=== PATIENT | male | born 1965 | race African-American/Black ===

== ENCOUNTER 2017-03-24 17:56 | Emergency (ER) | payer SELFPAY ==
[~2017-03-24] VITALS: Ht 179.1 cm; Wt 86.2 kg
[2017-03-24] MEDS ORDERED: IV NORMAL SALINE 500ML BAG 500 ML IV ONE (18:30)
[2017-03-24] MEDS ORDERED: diphenhydrAMINE 50 MG/ML VIAL IVP ONE (18:30)
[2017-03-24] MEDS ORDERED: methylPREDNISolone SOD SUCC PF 125 MG/2 ML VIAL. IV ONE (18:30)
[2017-03-24 19:13] VITALS: BP 168/103
--- NOTE | 2017-03-24 19:17 | PHYS DOC ---
Past Medical History Past Medical History: Hypertension, Other Additional Past Medical Histor: gout Past Surgical History: No Surgical History Alcohol Use: Heavy Drug Use: None Adult General Chief Complaint Chief Complaint: OTHER COMPLAINTS HPI HPI Patient is a 51 year old male who presents with upper lip swelling and some itching on both feet since about 7:30 this morning after taking lisinopril hydrochlorothiazide for his hypertension is felt a little bit dizzy during the day. Denies any tongue swelling or difficulty swallowing no wheezing or shortness of breath. No skin rash no hives. No prior episodes similar to this. Review of Systems Review of Systems Constitutional: Denies fever or chills [] Eyes: Denies change in visual acuity, redness, or eye pain [] HENT: Denies nasal congestion or sore throat [] Respiratory: Denies cough or shortness of breath [] Cardiovascular: No additional information not addressed in HPI [] GI: Denies abdominal pain, nausea, vomiting, bloody stools or diarrhea [] : Denies dysuria or hematuria [] Musculoskeletal: Denies back pain or joint pain [] Integument: Denies rash or skin lesions [] Neurologic: Denies headache, focal weakness or sensory changes [] Endocrine: Denies polyuria or polydipsia [] All systems negative except as noted in the history of present illness Current Medications Current Medications Current Medications Medications (Trade) Dose Ordered Sig/Roel Start Time Stop Time Status Last Admin Dose Admin Diphenhydramine HCl (Benadryl) 50 mg 1X ONCE 03/24/17 18:30 03/24/17 18:32 DC 03/24/17 18:37 50 MG Methylprednisolone Sodium Succinate (SOLU-Medrol 125MG VIAL) 125 mg 1X ONCE 03/24/17 18:30 03/24/17 18:32 DC 03/24/17 18:37 125 MG Sodium Chloride 500 ml @ 500 mls/hr 1X ONCE 03/24/17 18:30 03/24/17 19:29 DC 03/24/17 18:36 500 MLS/HR Allergies Allergies Allergies Coded Allergies Type Severity Reaction Last Updated Verified lisinopril Allergy Severe angioedema 03/24/17 Yes Physical Exam Physical Exam Constitutional: Well developed, well nourished, no acute distress, non-toxic appearance. [] HENT: Normocephalic, atraumatic, bilateral external ears normal, oropharynx moist, no oral exudates, nose normal. No tongue swelling the upper lip is mild to moderately swollen no lower lip swelling. Able to handle oral secretions; normally normal voice [] Eyes: PERRLA, EOMI, conjunctiva normal, no discharge. [] Neck: Normal range of motion, no tenderness, supple, no stridor. [] Cardiovascular:Heart rate regular rhythm, no murmur [] Lungs & Thorax: Bilateral breath sounds clear to auscultation [] no wheezing Abdomen: Bowel sounds normal, soft, no tenderness, no masses, no pulsatile masses. [] Skin: Warm, dry, no erythema, no rash. [] Back: No tenderness, no CVA tenderness. [] Extremities: No tenderness, no cyanosis, no clubbing, ROM intact, no edema. [] Neurologic: Alert and oriented X 3, normal motor function, normal sensory function, no focal deficits noted. [] Psychologic: Affect normal, judgement normal, mood normal. [] Current Patient Data Vital Signs Vital Signs Date Time Temp Pulse Resp B/P (MAP) Pulse Ox O2 Delivery O2 Flow Rate FiO2 03/24/17 19:13 100 16 168/103 (124) 98 Room Air 03/24/17 18:18 98.4 98.4 EKG EKG [] Radiology/Procedures Radiology/Procedures [] Course & Med Decision Making Course & Med Decision Making Pertinent Labs and Imaging studies reviewed. (See chart for details) Based on history or physical exam findings most consistent with angioedema secondary to UNRULY inhibitor-induced cause. Patient has no airway compromise. Observation. Demonstrated a stable slightly swollen upper lip with no lower lip or tongue swelling or throat swelling. No wheezing or difficulty breathing. He did have some slight itching with his feet and this was addressed with IV Benadryl and some steroids. And IV fluids. Patient feels improved. I have given him the option for observation admission to the hospital and he and his are declining this at this time. We've given him precautions regarding tongue and throat swelling and to immediately return if this occurs. [] Dragon Disclaimer Dragon Disclaimer This electronic medical record was generated, in whole or in part, using a voice recognition dictation system. Departure Departure Impression: Primary Impression: UNRULY inhibitor-aggravated angioedema Disposition: 01 HOME, SELF-CARE Condition: IMPROVED Referrals: NO PCP (PCP) MARTHA MONROE MD March 24, 2017 19:17
--- NOTE | 2017-03-25 07:25 | EKG ---
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
== END 2017-03-24 19:25 | disposition home or self-care (01) ==
LOC: ER 17:56
DX: T78.3XXA Angioneurotic edema, initial encounter (principal); I10 Essential (primary) hypertension; M10.9 Gout, unspecified; Z88.8 Allergy status to other drugs, medicaments and biological substances
CPT/HCPCS: 93005; 96361; 96374; 96375; 99284; J1200; J2930; J7040

== ENCOUNTER 2017-04-22 15:56 | Inpatient (IN) | payer SELFPAY ==
[~2017-04-22] VITALS: Ht 179.1 cm; Wt 89.9 kg
[2017-04-22] MEDS ORDERED: ACETAMINOPHEN 500 MG TABLET PO ONE (16:30)
[2017-04-22 17:05] LABS: BASO % 1 % (0-3); EOS % 2 % (0-3); HEMATOCRIT 43.8 % (39.0-53.0); LYMPH # 0.8 x10^3/uL (1.0-4.8); LYMPH % 24 % (24-48); MEAN CORPUSCULAR HEMOGLOBIN 32 pg (25-35); MEAN CORPUSCULAR HGB CONC 34 g/dL (31-37); MEAN CORPUSCULAR VOLUME 94 fL (79-100); MONO % 12 % (0-9); NEUT % 61 % (31-73); PLATELET COUNT 125 x10^3/uL (140-400); RED BLOOD COUNT 4.65 x10^6/uL (4.30-5.70); RED CELL DISTRIBUTION WIDTH 13.6 % (11.5-14.5); WHITE BLOOD COUNT 3.2 x10^3/uL (4.0-11.0)
[2017-04-22 17:07] LABS: BILIRUBIN,URINE NEGATIVE (NEG); GLUCOSE,URINE NEGATIVE (NEG); NITRITE,URINE NEGATIVE (NEG); PH,URINE 7.5; PROTEIN,URINE 30 mg/dL (NEG-TRACE)
[2017-04-22 17:14] LABS: BACTERIA,URINE FEW /HPF (0-FEW)
[2017-04-22 17:15] LABS: SQUAMOUS EPITHELIAL CELL,UR OCC /LPF
[2017-04-22 17:16] LABS: CALCIUM 9.7 mg/dL (8.5-10.1); GFR 94.9
[2017-04-22 17:22] LABS: ALBUMIN 4.3 g/dL (3.4-5.0); DIRECT BILIRUBIN 0.2 mg/dL (0.0-0.2); MAGNESIUM 2.1 mg/dL (1.8-2.4); TOTAL BILIRUBIN 0.6 mg/dL (0.2-1.0)
[2017-04-22 17:28] LABS: BARBITURATES NEG (NEG); BENZODIAZEPINES NEG (NEG); CANNABINOIDS NEG (NEG); COCAINE NEG (NEG); METHADONE NEG (NEG); OPIATES NEG (NEG); PHENCYCLIDINE NEG (NEG)
--- NOTE | 2017-04-22 17:31 | RAD ---
Indication chest pain. Frontal and lateral views of the chest were obtained. Comparison is made to an examination November 28, 2005. The heart and pulmonary vessels appear normal. The mediastinum has a normal appearance. The lungs are clear of acute infiltrates. There is no pleural fluid or pneumothorax. Scoliosis is noted. IMPRESSION: No acute or focal process is seen in the chest
[2017-04-22] MEDS ORDERED: LABETALOL 20 MG/4 ML DISP.SYRIN. IVP ONE ×2 (17:45→19:15)
--- NOTE | 2017-04-22 17:48 | RAD ---
EXAM: Head CT without contrast. HISTORY: Hypertension and headache. TECHNIQUE: Computed tomographic images of the head were obtained without contrast. *One or more of the following individualized dose reduction techniques were utilized for this examination: 1. Automated exposure control. 2. Adjustment of the mA and/or kV according to patient size. 3. Use of iterative reconstruction technique. COMPARISON: None. FINDINGS: There is no acute or subacute extra-axial or intraparenchymal hemorrhage. There is no mass effect or midline shift. There is no hydrocephalus. There are foci of fat along the falx and along the atrium of the left lateral ventricle, the latter which measures 7 mm in maximum dimension. The jaeger-white matter differentiation pattern is intact. There is mild left maxillary and left greater than right ethmoid sinus because of thickening. The mastoid air cells are clear. No calvarial lesion is seen. IMPRESSION: 1. No acute intracranial finding. Note is made that MRI is more sensitive for acute infarction. 2. Small focal areas of fat density along the falx and atrium of the left lateral ventricle. The differential includes small lipomas as well as dermoid or ruptured dermoid. Electronically signed by: Patricia Oneil MD (04/22/2017 5:45 PM)
[2017-04-22] MEDS ORDERED: amLODIPine BESYLATE 5 MG TABLET PO ONE (18:00)
[2017-04-22] MEDS ORDERED: NICOTINE 21MG PATCH. TD PRN (21:00)
--- NOTE | 2017-04-22 21:07 | PDOC1 ---
History and Physical Date of Admission Date of Admission DATE: 04/22/17 TIME: 20:52 Identification/Chief Complaint Chief Complaint shakes, headache Problems: Source Source: Caregiver, Chart review, Patient History of Present Illness History of Present Illness 51 y.o AA male, heavy alcoholic, many beers a day, pint of gin everyday, ETOH levels 75, high BP on admit, no resolved with hydralazine pushes and PO anti hypertensives, admitted for high BP on cardene gtt and etoh withdrawal. Smokes too, tested positive for etoh, labs WBC 3,.2, platelets ok, no mag, K is ok, Pt starting to shake, CXR normal, CT head I have personally reviewed: IMPRESSION: 1. No acute intracranial finding. Note is made that MRI is more sensitive for acute infarction. 2. Small focal areas of fat density along the falx and atrium of the left lateral ventricle. The differential includes small lipomas as well as dermoid or ruptured dermoid. 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 Tells us was on lisinopril before but had angioedema hence stopped, And was not replaced on anything (pt might not be that reliable) Past Medical History Cardiovascular: HTN Past Surgical History Past Surgical History: No pertinent history Family History Family History: Hypertension Social History Smoke: <1 pack per day ALCOHOL: heavy Drugs: None Current Medications Current Medications Current Medications Acetaminophen (Tylenol) 1,000 mg 1X ONCE PO Last administered on 04/22/17 17: 04; Start 04/22/17 at 16:30; Stop 04/22/17 at 16:33; Status DC Labetalol HCl (Normodyne) 20 mg 1X ONCE IVP Last administered on 04/22/17 18: 12; Start 04/22/17 at 17:45; Stop 04/22/17 at 17:46; Status DC Amlodipine Besylate (Norvasc) 10 mg 1X ONCE PO Last administered on 04/22/17 18:13; Start 04/22/17 at 18:00; Stop 04/22/17 at 18:01; Status DC Labetalol HCl (Normodyne) 40 mg 1X ONCE IVP Last administered on 04/22/17 19: 26; Start 04/22/17 at 19:15; Stop 04/22/17 at 19:16; Status DC Nicardipine HCl 50 mg/Sodium Chloride 270 ml @ 0 mls/hr CONT PRN IV SEE I/O RECORD Last administered on 04/22/17t 20:15; Start 04/22/17 at 20:00 Multivitamins 10 ml/Thiamine HCl 100 mg/Folic Acid 1 mg/Sodium Chloride 1,011.2 ml @ 100 mls/ hr DAILY IV ; Start 04/23/17 at 09:00; Stop 04/28/17 at 08:59; Status UNV Chlordiazepoxide (Librium) 50 mg PRN Q1HR PRN PO For CIWA 8-14; Start 04/22/17 at 20:45; Status UNV Diazepam (Valium) 5 mg PRN Q5MIN PRN IV COMM; Start 04/22/17 at 20:45; Status UNV Allergies Allergies: Coded Allergies: lisinopril (Verified Allergy, Severe, angioedema, 03/24/17) ROS General: No: Chills, Night Sweats, Fatigue, Malaise, Appetite, Other PSYCHOLOGICAL ROS: No: Anxiety, Behavioral Disorder, Concentration difficultie , Decreased libido, Depression, Disorientation, Hallucinations, Hostility, Irritablity, Memory difficulties, Mood Swings, Obsessive thoughts, Physical abuse, Sexual abuse, Sleep disturbances, Suicidal ideation, Other Eyes: No Blurry vision, No Decreased vision, No Double vision, No Dry eyes, No Excessive tearing, No Eye Pain, No Itchy Eyes, No Loss of vision, No Photophobia , No Scotomata, No Uses contacts, No Uses glasses, No Other HEENT: No: Heacaches, Visual Changes, Hearing change, Nasal congestion, Nasal discharge, Oral lesions, Sinus pain, Sore Throat, Epistaxis, Sneezing, Snoring, Tinnitus, Vertigo, Vocal changes, Other ALLERGY AND IMMUNOLOGY: No: Hives, Insect Bite Sensitivity, Itchy/Watery Eyes, Nasal Congestion, Post Nasal Drip, Seasonal Allergies, Other Hematological and Lymphatic: No: Bleeding Problems, Blood Clots, Blood Transfusions, Brusing, Night Sweats, Pallor, Swollen Lymph Nodes, Other ENDOCRINE: No: Breast Changes, Galactorrhea, Hair Pattern Changes, Hot Flashes , Malaise/lethargy, Mood Swings, Palpitations, Polydipsia/polyuria, Skin Changes , Temperature Intolerance, Unexpected Weight Changes, Other Breast: No New/Changing Breast Lumps, No Nipple changes, No Nipple discharge, No Other Respiratory: No: Cough, Hemoptysis, Orthopnea, Pleuritic Pain, Shortness of breath, SOB with excertion, Sputum Changes, Stridor, Tachypnea, Wheezing, Other Cardiovascular: No Chest Pain, No Palpitations, No Orthopnea, No Paroxysmal Noc. Dyspnea, No Edema, No Lt Headedness, No Other Gastrointestinal: No Nausea, No Vomiting, No Abdominal Pain, No Diarrhea, No Constipation, No Melena, No Hematochezia, No Other Genitourinary: No Dysuria, No Frequency, No Incontinence, No Hematuria, No Retention, No Discharge, No Urgency, No Pain, No Flank Pain, No Other, No , No , No , No , No , No , No Neurological: Yes Headaches Skin: No Dry Skin, No Eczema, No Hair Changes, No Lumps, No Mole Changes, No Mottling, No Nail Changes, No Pruritus, No Rash, No Skin Lesion Changes, No Other, No Acne Physical Exam General: Alert, Oriented X3, Cooperative, No acute distress, Other (starting to have shakes/tremors) HEENT: Atraumatic Lungs: Clear to auscultation Heart: S1S2, RRR, no thrills, no rubs, other (tachy) Cardiovascular: S1, S2 Breasts: Normal Abdomen: Normal bowel sounds, Soft, No tenderness, No hepatosplenomegaly, No masses Male Genitals Exam: normal genitalia, normal prostate Rectal Exam: not examined, mass Extremities: No clubbing, No cyanosis, No edema, Normal pulses, No tenderness/ swelling Skin: No rashes, No breakdown, No significant lesion Neuro: Normal gait, Normal speech, Strength at 5/5 X4 ext, Normal tone, Sensation intact, Cranial nerves 3-12 NL, Reflexes 2+ Psych/Mental Status: Mental status NL, Mood NL Vitals Vitals Vital Signs Date Time Temp Pulse Resp B/P (MAP) Pulse Ox O2 Delivery O2 Flow Rate FiO2 04/22/17 20:00 78 26 183/110 (134) 95 Room Air 04/22/17 16:05 98.3 98.3 Labs Labs Laboratory Tests Test 04/22/17 16:56 04/22/17 17:22 White Blood Count 3.2 x10^3/uL (4.0-11.0) Red Blood Count 4.65 x10^6/uL (4.30-5.70) Hemoglobin 15.0 g/dL (13.0-17.5) Hematocrit 43.8 % (39.0-53.0) Mean Corpuscular Volume 94 fL (79-100) Mean Corpuscular Hemoglobin 32 pg (25-35) Mean Corpuscular Hemoglobin Concent 34 g/dL (31-37) Red Cell Distribution Width 13.6 % (11.5-14.5) Platelet Count 125 x10^3/uL (140-400) Neutrophils (%) (Auto) 61 % (31-73) Lymphocytes (%) (Auto) 24 % (24-48) Monocytes (%) (Auto) 12 % (0-9) Eosinophils (%) (Auto) 2 % (0-3) Basophils (%) (Auto) 1 % (0-3) Neutrophils # (Auto) 2.0 x10^3uL (1.8-7.7) Lymphocytes # (Auto) 0.8 x10^3/uL (1.0-4.8) Monocytes # (Auto) 0.4 x10^3/uL (0.0-1.1) Eosinophils # (Auto) 0.1 x10^3/uL (0.0-0.7) Basophils # (Auto) 0.0 x10^3/uL (0.0-0.2) Urine Collection Type Void Urine Color Yellow Urine Clarity Clear Urine pH 7.5 Urine Specific [place] 1.020 Urine Protein 30 mg/dL (NEG-TRACE) Urine Glucose (UA) Negative mg/dL (NEG) Urine Ketones (Stick) Trace mg/dL (NEG) Urine Blood Negative (NEG) Urine Nitrite Negative (NEG) Urine Bilirubin Negative (NEG) Urine Urobilinogen Dipstick 1.0 mg/dL (0.2 mg/dL) Urine Leukocyte Esterase Trace (NEG) Urine RBC 1-2 /HPF (0-2) Urine WBC 5-10 /HPF (0-4) Urine Squamous Epithelial Cells Occ /LPF Urine Bacteria Few /HPF (0-FEW) Urine Mucus Mod /LPF Sodium Level 138 mmol/L (136-145) Potassium Level 4.0 mmol/L (3.5-5.1) Chloride Level 98 mmol/L (98-107) Carbon Dioxide Level 27 mmol/L (21-32) Anion Gap 13 (6-14) Blood Urea Nitrogen 9 mg/dL (8-26) Creatinine 1.0 mg/dL (0.7-1.3) Estimated GFR (Cockcroft-Gault) 94.9 Glucose Level 98 mg/dL (70-99) Calcium Level 9.7 mg/dL (8.5-10.1) Magnesium Level 2.1 mg/dL (1.8-2.4) Total Bilirubin 0.6 mg/dL (0.2-1.0) Direct Bilirubin 0.2 mg/dL (0.0-0.2) Aspartate Amino Transf (AST/SGOT) 484 U/L (15-37) Alanine Aminotransferase (ALT/SGPT) 425 U/L (16-63) Alkaline Phosphatase 62 U/L (46-116) Troponin I Quantitative 0.017 ng/mL (0.000-0.055) ZL-Nwu-M-Type Natriuretic Peptide 22 pg/mL (0-124) Total Protein 8.0 g/dL (6.4-8.2) Albumin 4.3 g/dL (3.4-5.0) Lipase 232 U/L (73-393) Urine Opiates Screen Neg (NEG) Urine Methadone Screen Neg (NEG) Urine Barbiturates Neg (NEG) Urine Phencyclidine Screen Neg (NEG) Urine Amphetamine/Methamphetamine Neg (NEG) Urine Benzodiazepines Screen Neg (NEG) Urine Cocaine Screen Neg (NEG) Urine Cannabinoids Screen Neg (NEG) Urine Ethyl Alcohol Pos (NEG) Ethyl Alcohol Level 75 mg/dL (0-10) Laboratory Tests Test 04/22/17 16:56 04/22/17 17:22 White Blood Count 3.2 x10^3/uL (4.0-11.0) Red Blood Count 4.65 x10^6/uL (4.30-5.70) Hemoglobin 15.0 g/dL (13.0-17.5) Hematocrit 43.8 % (39.0-53.0) Mean Corpuscular Volume 94 fL (79-100) Mean Corpuscular Hemoglobin 32 pg (25-35) Mean Corpuscular Hemoglobin Concent 34 g/dL (31-37) Red Cell Distribution Width 13.6 % (11.5-14.5) Platelet Count 125 x10^3/uL (140-400) Neutrophils (%) (Auto) 61 % (31-73) Lymphocytes (%) (Auto) 24 % (24-48) Monocytes (%) (Auto) 12 % (0-9) Eosinophils (%) (Auto) 2 % (0-3) Basophils (%) (Auto) 1 % (0-3) Neutrophils # (Auto) 2.0 x10^3uL (1.8-7.7) Lymphocytes # (Auto) 0.8 x10^3/uL (1.0-4.8) Monocytes # (Auto) 0.4 x10^3/uL (0.0-1.1) Eosinophils # (Auto) 0.1 x10^3/uL (0.0-0.7) Basophils # (Auto) 0.0 x10^3/uL (0.0-0.2) Urine Collection Type Void Urine Color Yellow Urine Clarity Clear Urine pH 7.5 Urine Specific [place] 1.020 Urine Protein 30 mg/dL (NEG-TRACE) Urine Glucose (UA) Negative mg/dL (NEG) Urine Ketones (Stick) Trace mg/dL (NEG) Urine Blood Negative (NEG) Urine Nitrite Negative (NEG) Urine Bilirubin Negative (NEG) Urine Urobilinogen Dipstick 1.0 mg/dL (0.2 mg/dL) Urine Leukocyte Esterase Trace (NEG) Urine RBC 1-2 /HPF (0-2) Urine WBC 5-10 /HPF (0-4) Urine Squamous Epithelial Cells Occ /LPF Urine Bacteria Few /HPF (0-FEW) Urine Mucus Mod /LPF Sodium Level 138 mmol/L (136-145) Potassium Level 4.0 mmol/L (3.5-5.1) Chloride Level 98 mmol/L (98-107) Carbon Dioxide Level 27 mmol/L (21-32) Anion Gap 13 (6-14) Blood Urea Nitrogen 9 mg/dL (8-26) Creatinine 1.0 mg/dL (0.7-1.3) Estimated GFR (Cockcroft-Gault) 94.9 Glucose Level 98 mg/dL (70-99) Calcium Level 9.7 mg/dL (8.5-10.1) Magnesium Level 2.1 mg/dL (1.8-2.4) Total Bilirubin 0.6 mg/dL (0.2-1.0) Direct Bilirubin 0.2 mg/dL (0.0-0.2) Aspartate Amino Transf (AST/SGOT) 484 U/L (15-37) Alanine Aminotransferase (ALT/SGPT) 425 U/L (16-63) Alkaline Phosphatase 62 U/L (46-116) Troponin I Quantitative 0.017 ng/mL (0.000-0.055) IH-Yuj-V-Type Natriuretic Peptide 22 pg/mL (0-124) Total Protein 8.0 g/dL (6.4-8.2) Albumin 4.3 g/dL (3.4-5.0) Lipase 232 U/L (73-393) Urine Opiates Screen Neg (NEG) Urine Methadone Screen Neg (NEG) Urine Barbiturates Neg (NEG) Urine Phencyclidine Screen Neg (NEG) Urine Amphetamine/Methamphetamine Neg (NEG) Urine Benzodiazepines Screen Neg (NEG) Urine Cocaine Screen Neg (NEG) Urine Cannabinoids Screen Neg (NEG) Urine Ethyl Alcohol Pos (NEG) Ethyl Alcohol Level 75 mg/dL (0-10) VTE Prophylaxis Ordered VTE Prophylaxis Devices: Yes VTE Pharmacological Prophylaxi: Yes Assessment/Plan Assessment/Plan 1. Accelerated hTN POA 2. Alcohol heavy consumption now with etoh withdrawal sxs 3. Ruptured lipoma vs small dermoid, incidental on head CT 4. NEutropenia in an alcoholic 5. Smoker 6. elevated LFTs in an alcoholic 7. Thrombocytopenia in an alcoholic PLAN: Admit CArdene gtt to control BP as no resolved with pushes CIWA PT.OT SW for AAA referral Monitor low platelets and low white ct NIcotine patch Seen at ER [facility] ER LESIA SOOD MD Apr 22, 2017 21:07
[2017-04-22] MEDS ORDERED: ONDANSETRON PF 4 MG/2 ML VIAL. IV PRN (21:15)
[2017-04-22] MEDS: MULTIVIT INFUSN,ADULT 4,VIT K 10 ML, THIAMINE 100 MG, FOLIC ACID 1 MG in IV NORMAL SALI... IV SCH (21:40)
[2017-04-22] MEDS: chlordiazePOXIDE HCL 25 MG CAPSULE PO PRN (21:41)
--- NOTE | 2017-04-22 22:19 | ED.ADGEN ---
Past Medical History Past Medical History: Hypertension, Other Additional Past Medical Histor: gout Past Surgical History: No Surgical History Alcohol Use: Heavy Drug Use: None Social History Narrative: ETOH use daily, pt stated has tremors if does not drink Adult General Chief Complaint Chief Complaint: Palpitations HPI HPI Patient is a 51 year old man with a history of hypertension, alcohol abuse, who presents to the emergency department with a complaint of head and chest pressure and a "feeling like my blood pressure is up". Patient states symptoms began last night, has also been experiencing intermittent fluttering sensation in his chest, is not a tearing currently, patient is in sinus rhythm on the monitor. No history of arrhythmia. Patient's initial blood pressure is 190s over 1 teens, heart rate is in the 70s. Patient states that he drinks about a sixpack of beer and a half pint of gin daily. He did drink before he came to the ED, but has not had anything since this morning. He denies any drugs, denies any injuries, denies any shortness of breath, any nausea or vomiting, any vision changes, any focal weakness, numbness or tingling. He states that he is experiencing pressure behind his eyes, in his head extending down into his neck and the anterior portion of his chest, no radiation into his arms. He states he is having a headache as well, located in the front of his head. He states that he had similar symptoms previously, and was told this was due to his high blood pressure. He states that one month ago he had an allergic reaction to lisinopril, the medication was discontinued, and he did not follow- up with another provider in order placed on another medication and therefore has not taken any antihypertensive medication since that time. No swelling extremities, no history of DVT or PE, no recent travel or surgery. Patient states that he does get shaky when he doesn't drink, but denies any history of seizure activity or other withdrawal problems. Review of Systems Review of Systems Constitutional: Denies fever or chills. [] Eyes: Denies change in visual acuity. [] HENT: Denies nasal congestion or sore throat. [] Respiratory: Denies cough or shortness of breath. [] Cardiovascular: Chest pressure, no edema. GI: Denies abdominal pain, nausea, vomiting, bloody stools or diarrhea. [] : Denies dysuria. [] Musculoskeletal: Denies back pain or joint pain. [] Integument: Denies rash. [] Neurologic: Headache and head pressure. No Focal weakness or sensory changes. [ ] Endocrine: Denies polyuria or polydipsia. [] Lymphatic: Denies swollen glands. [] Psychiatric: Denies depression or anxiety. [] Current Medications Current Medications Current Medications Medications (Trade) Dose Ordered Sig/Roel Start Time Stop Time Status Last Admin Dose Admin Acetaminophen (Tylenol) 1,000 mg 1X ONCE 04/22/17 16:30 04/22/17 16:33 DC 04/22/17 17:04 1,000 MG Amlodipine Besylate (Norvasc) 10 mg 1X ONCE 04/22/17 18:00 04/22/17 18:01 DC 04/22/17 18:13 10 MG Labetalol HCl (Normodyne) 40 mg 1X ONCE 04/22/17 19:15 04/22/17 19:16 DC 04/22/17 19:26 40 MG Allergies Allergies Allergies Coded Allergies Type Severity Reaction Last Updated Verified lisinopril Allergy Severe angioedema 03/24/17 Yes Physical Exam Physical Exam Constitutional: Well developed, well nourished, no acute distress, non-toxic appearance. Patient is slightly tremulous. HENT: Normocephalic, atraumatic, bilateral external ears normal, oropharynx moist, no oral exudates, nose normal. [] Eyes: PERRLA, EOMI, conjunctiva normal, no discharge. [] Neck: Normal range of motion, no tenderness, supple, no stridor. [] Cardiovascular:Heart rate regular rhythm, no murmur , S1, S2, no rubs or gallops. [] Lungs & Thorax: Bilateral breath sounds clear to auscultation, no wheezing, rhonchi, rales. No chest wall crepitus or tenderness. [] Abdomen: Bowel sounds normal, soft, no tenderness, no masses, no pulsatile masses. [] Skin: Warm, dry, no erythema, no rash. [] Back: No tenderness, no CVA tenderness. [] Extremities: No tenderness, no cyanosis, no clubbing, ROM intact, no edema. [] Neurologic: Alert and oriented X 3, normal motor function, normal sensory function, no focal deficits noted. [] Patient noted to have tremor with movement. Psychologic: Affect normal, judgement normal, mood normal. [] Current Patient Data Vital Signs Vital Signs Date Time Temp Pulse Resp B/P (MAP) Pulse Ox O2 Delivery O2 Flow Rate FiO2 04/22/17 19:30 76 20 191/113 (139) 97 Room Air 04/22/17 16:05 98.3 98.3 Lab Values Laboratory Tests Test 04/22/17 16:56 04/22/17 17:22 White Blood Count 3.2 x10^3/uL (4.0-11.0) L Red Blood Count 4.65 x10^6/uL (4.30-5.70) Hemoglobin 15.0 g/dL (13.0-17.5) Hematocrit 43.8 % (39.0-53.0) Mean Corpuscular Volume 94 fL (79-100) Mean Corpuscular Hemoglobin 32 pg (25-35) Mean Corpuscular Hemoglobin Concent 34 g/dL (31-37) Red Cell Distribution Width 13.6 % (11.5-14.5) Platelet Count 125 x10^3/uL (140-400) L Neutrophils (%) (Auto) 61 % (31-73) Lymphocytes (%) (Auto) 24 % (24-48) Monocytes (%) (Auto) 12 % (0-9) H Eosinophils (%) (Auto) 2 % (0-3) Basophils (%) (Auto) 1 % (0-3) Neutrophils # (Auto) 2.0 x10^3uL (1.8-7.7) Lymphocytes # (Auto) 0.8 x10^3/uL (1.0-4.8) L Monocytes # (Auto) 0.4 x10^3/uL (0.0-1.1) Eosinophils # (Auto) 0.1 x10^3/uL (0.0-0.7) Basophils # (Auto) 0.0 x10^3/uL (0.0-0.2) Urine Collection Type Void Urine Color Yellow Urine Clarity Clear Urine pH 7.5 Urine Specific [place] 1.020 Urine Protein 30 mg/dL (NEG-TRACE) Urine Glucose (UA) Negative mg/dL (NEG) Urine Ketones (Stick) Trace mg/dL (NEG) Urine Blood Negative (NEG) Urine Nitrite Negative (NEG) Urine Bilirubin Negative (NEG) Urine Urobilinogen Dipstick 1.0 mg/dL (0.2 mg/dL) Urine Leukocyte Esterase Trace (NEG) Urine RBC 1-2 /HPF (0-2) Urine WBC 5-10 /HPF (0-4) Urine Squamous Epithelial Cells Occ /LPF Urine Bacteria Few /HPF (0-FEW) Urine Mucus Mod /LPF Sodium Level 138 mmol/L (136-145) Potassium Level 4.0 mmol/L (3.5-5.1) Chloride Level 98 mmol/L (98-107) Carbon Dioxide Level 27 mmol/L (21-32) Anion Gap 13 (6-14) Blood Urea Nitrogen 9 mg/dL (8-26) Creatinine 1.0 mg/dL (0.7-1.3) Estimated GFR (Cockcroft-Gault) 94.9 Glucose Level 98 mg/dL (70-99) Calcium Level 9.7 mg/dL (8.5-10.1) Magnesium Level 2.1 mg/dL (1.8-2.4) Total Bilirubin 0.6 mg/dL (0.2-1.0) Direct Bilirubin 0.2 mg/dL (0.0-0.2) Aspartate Amino Transferase (AST) 484 U/L (15-37) H Alanine Aminotransferase (ALT) 425 U/L (16-63) H Alkaline Phosphatase 62 U/L (46-116) Troponin I Quantitative 0.017 ng/mL (0.000-0.055) EY-Yho-O-Type Natriuretic Peptide 22 pg/mL (0-124) Total Protein 8.0 g/dL (6.4-8.2) Albumin 4.3 g/dL (3.4-5.0) Lipase 232 U/L (73-393) Urine Opiates Screen Neg (NEG) Urine Methadone Screen Neg (NEG) Urine Barbiturates Neg (NEG) Urine Phencyclidine Screen Neg (NEG) Urine Amphetamine/Methamphetamine Neg (NEG) Urine Benzodiazepines Screen Neg (NEG) Urine Cocaine Screen Neg (NEG) Urine Cannabinoids Screen Neg (NEG) Urine Ethyl Alcohol Pos (NEG) Ethyl Alcohol Level 75 mg/dL (0-10) H Laboratory Tests 04/22/17 16:56 Laboratory Tests 04/22/17 16:56 EKG EKG EC: Sinus rhythm, heart rate 70 beats minute, left axis deviation with contour normality is noted in the anterior leads, and septal leads, with T-wave inversions noted in lead 3 as well, no ST elevations or depressions, QTC of 407 , HI of 106, QRS of 90, abnormal ECG, does not meet STEMI criteria. As interpreted by me. Radiology/Procedures Radiology/Procedures [][id number] [place], [place] [id number] IMAGING REPORT Signed PATIENT: MARTHA GUZMÁN ACCOUNT: [id number] : 1965 LOCATION: ER AGE: 51 SEX: M EXAM STATUS: REG ER ORD. PHYSICIAN: MICHEL FONSECA DO REASON: HTN/RIDDLE PROCEDURE: CT HEAD WO CONTRAST EXAM: Head CT without contrast. HISTORY: Hypertension and headache. TECHNIQUE: Computed tomographic images of the head were obtained without contrast. *One or more of the following individualized dose reduction techniques were utilized for this examination: 1. Automated exposure control. 2. Adjustment of the mA and/or kV according to patient size. 3. Use of iterative reconstruction technique. COMPARISON: None. FINDINGS: There is no acute or subacute extra-axial or intraparenchymal hemorrhage. There is no mass effect or midline shift. There is no hydrocephalus. There are foci of fat along the falx and along the atrium of the left lateral ventricle, the latter which measures 7 mm in maximum dimension. The jaeger-white matter differentiation pattern is intact. There is mild left maxillary and left greater than right ethmoid sinus because of thickening. The mastoid air cells are clear. No calvarial lesion is seen. IMPRESSION: 1. No acute intracranial finding. Note is made that MRI is more sensitive for acute infarction. 2. Small focal areas of fat density along the falx and atrium of the left lateral ventricle. The differential includes small lipomas as well as dermoid or ruptured dermoid. Electronically signed by: Patricia Hirsch MD (04/22/2017 5:45 PM) DICTATED and SIGNED BY: PATRICIA HIRSCH MD DATE: 04/22/17 1739 CC: MICHEL FONSECA DO; NO PCP ~ Impressions: [id number] [place] [id number] IMAGING REPORT Signed PATIENT: MARTHA GUZMÁN ACCOUNT: [id number] : 1965 LOCATION: ER AGE: 51 SEX: M EXAM STATUS: REG ER ORD. PHYSICIAN: MICHEL FONSECA DO REASON: Palpitations PROCEDURE: CHEST PA & LATERAL Indication chest pain. Frontal and lateral views of the chest were obtained. Comparison is made to an examination November 28, 2005. The heart and pulmonary vessels appear normal. The mediastinum has a normal appearance. The lungs are clear of acute infiltrates. There is no pleural fluid or pneumothorax. Scoliosis is noted. IMPRESSION: No acute or focal process is seen in the chest DICTATED and SIGNED BY: CHAU FOSTER MD DATE: 04/22/171726 CC: MICHEL FONSECA DO; NO PCP ~ Course & Med Decision Making Course & Med Decision Making Pertinent Labs and Imaging studies reviewed. (See chart for details) Patient received CT imaging of the head, x-ray of the chest, laboratory studies which were unremarkable. ECG reveals left axis deviation, no ST elevation or depression, troponin is negative. Patient received labetalol initially 20 mg IV in the ED, and then additional 40, and 10 mg of Norvasc. His blood pressure improved slightly, to 180s over 100s, patient states he was feeling better, but then blood pressure did increase, 199/114. Patient is also becoming increasingly tremulous, with evidence of withdrawal. I did discuss these findings with patient, as he is not responding to oral medications at this time an effective manner, and he has been almost 90 minutes since administration of these multiple medications, he is agreeable for admission to the hospital with initiation of IV infusion of medication to control his blood pressure, and also initiation of alcohol withdrawal protocol. Patient agreeable, was initiated on a nicardipine infusion, at 12.5 mg, heart rate remains in the 80s, blood pressure is 160s/90s, patient has been administered Librium, and a dose of Valium, and states he is feeling better at this time, although his heart rate is fluctuating between 80s to low 100s. Will continue to monitor and used C1 score for adjustment, instructed to keep his blood pressure between 140s to 160s , over 80s to 90s. Findings as above discussed with Dr. Neal internal medicine, patient accepted to her service as a full admission to the cardiac telemetry floor, with consultation for cardiology placed bridge orders entered per discussion. Dragon Disclaimer Dragon Disclaimer This electronic medical record was generated, in whole or in part, using a voice recognition dictation system. Departure Impression: Primary Impression: HTN (hypertension) Additional Impressions: Noncompliance with medication regimen Palpitations Alcohol addiction Disposition: ADMITTED INPATIENT Admitting Physician: Beata Neal Condition: IMPROVED Problem Qualifiers MICHEL FONSECA DO Apr 22, 2017 22:19
[2017-04-22 22:30] VITALS: BP 130/73
[2017-04-22 22:56] VITALS: BP 134/73
[2017-04-23] VITALS (9 sets, daily range): BP systolic 126–136; BP diastolic 69–87
--- NOTE | 2017-04-23 02:05 | ACF ---
Admission Forms Criteria HYPERTENSION Clinical Indications for Admission to Inpatient Care ( Place "X" for any and all applicable criteria): Admission is indicated for 1 or more of the following(1)(2)(3)(4)(5)(6)(7)(8)(9) (10): [ ]I. Hypertensive emergency, with evidence of acute and progressing target organ disease as indicated by 1 or more of the following: [ ]a) Hypertensive encephalopathy (eg, confusion, altered mental status) [ ]b) Cerebral infarction [ ]c) Intracranial hemorrhage [ ]d) Myocardial ischemia or infarction [ ]e) Heart failure (eg. Pulmonary edema) [ ]f) Aortic dissection [ ]g) Increased creatinine (new) with reduction of more than 50% in estimated glomerular filtration rate from baseline [ ]h) Seizure [ ]i) Papilledema [ ]j) Retinal hemorrhage [ ]k) Microangiopathic hemolytic anemia [ ]l) Other significant finding secondary to hypertension [ ]II. Adrenergic or sympathomimetic crisis (eg, severe hypertension due to pheochromocytoma crisis, cocaine or amphetamine intoxication, or clonidine withdrawal) [X]III. Severe hypertension (SBP greater than 180 mmHg or DBP greater than 110 mmHg or greater than the 95th percentile for age, gender, and height in pediatric patients) that cannot be controlled (eg, to SBP less than 160 mmHg and DBP less than 100 mmHg in adults) by treatment with oral medication in emergency department or observation care Extended stay beyond goal length of stay may be needed for(11)(12)(13): [ ]a) Persistent hypertensive encephalopathy [ ]b) Continuation of pulmonary edema [ ]c) Recurring or persistent severe hypertension [ ]d) Target organ damage (eg, angina, stroke, aortic dissection) The original [employer] content created by [employer] has been revised. The portions of the content which have been revised are identified through the use of italic text, and [email or web address] [employer] has neither reviewed nor approved the modified material. All other unmodified content is copyright [employer]. Please see references footnoted in the original [employer] edition 2014 Admission Criteria Met?: Yes GRAHAM SAENZ Apr 23, 2017 02:05
[2017-04-23] MEDS: chlordiazePOXIDE HCL 25 MG CAPSULE PO PRN (03:35)
[2017-04-23 05:38] LABS: BASO % 1 % (0-3); EOS % 4 % (0-3); HEMATOCRIT 44.1 % (39.0-53.0); HEMOGLOBIN 14.9 g/dL (13.0-17.5); LYMPH # 1.2 x10^3/uL (1.0-4.8); LYMPH % 38 % (24-48); MEAN CORPUSCULAR HEMOGLOBIN 32 pg (25-35); MEAN CORPUSCULAR HGB CONC 34 g/dL (31-37); MEAN CORPUSCULAR VOLUME 95 fL (79-100); MONO % 14 % (0-9); NEUT % 44 % (31-73); PLATELET COUNT 115 x10^3/uL (140-400); RED BLOOD COUNT 4.66 x10^6/uL (4.30-5.70); RED CELL DISTRIBUTION WIDTH 13.6 % (11.5-14.5); WHITE BLOOD COUNT 3.1 x10^3/uL (4.0-11.0)
--- NOTE | 2017-04-23 06:01 | EKG ---
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
[2017-04-23 06:05] LABS: CALCIUM 9.2 mg/dL (8.5-10.1); CREATININE 0.8 mg/dL (0.7-1.3); GFR 122.8; POTASSIUM 3.6 mmol/L (3.5-5.1)
[2017-04-23] MEDS: MULTIVIT INFUSN,ADULT 4,VIT K 10 ML, THIAMINE 100 MG, FOLIC ACID 1 MG in IV NORMAL SALI... IV SCH (09:08)
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
[2017-04-23] MEDS ORDERED: amLODIPine BESYLATE 10 MG TABLET PO SCH (10:00)
[2017-04-23] MEDS ORDERED: CARVEDILOL 6.25 MG TABLET. PO SCH (10:00)
[2017-04-23 11:19] LABS: CHOLESTEROL/HDL RATIO 1.6
--- NOTE | 2017-04-23 11:45 | PDOC ---
PROGRESS NOTES Chief Complaint Chief Complaint Assessment/Plan 1. Accelerated hTN POA 2. Alcohol heavy consumption now with etoh withdrawal sxs 3. Ruptured lipoma vs small dermoid, incidental on head CT 4. NEutropenia in an alcoholic 5. Smoker 6. elevated LFTs in an alcoholic 7. Thrombocytopenia in an alcoholic History of Present Illness History of Present Illness Asleep did not awaken No calls last night for withdrawal HE was shaking badly when I saw him at ER Current CIWA and banana bag regimen is working great BP better (malignant HTN POA) Planned for echo later PLAn: Echo later PT/OT Will dc once gait steady, no shakes and BP controlled MAy start PO MVI,thiaine, folate etc COunselled on his heavy etoh Vitals Vitals Vital Signs Date Time Temp Pulse Resp B/P (MAP) Pulse Ox O2 Delivery O2 Flow Rate FiO2 04/23/17 10:16 97.9 101 19 130/76 (94) 95 Room Air 97.9 Physical Exam General: Alert, Oriented X3, Cooperative, No acute distress Heart: Regular rate (SR), Normal S1, Normal S2, Other (2/6 systolic murmur to LLS border) Abdomen: Soft, No tenderness Extremities: No cyanosis, No edema Skin: No breakdown, No significant lesion Labs LABS Laboratory Tests Test 04/22/17 16:56 04/22/17 17:22 04/22/17 23:45 04/23/17 04:30 White Blood Count 3.2 x10^3/uL (4.0-11.0) 3.1 x10^3/uL (4.0-11.0) Red Blood Count 4.65 x10^6/uL (4.30-5.70) 4.66 x10^6/uL (4.30-5.70) Hemoglobin 15.0 g/dL (13.0-17.5) 14.9 g/dL (13.0-17.5) Hematocrit 43.8 % (39.0-53.0) 44.1 % (39.0-53.0) Mean Corpuscular Volume 94 fL (79-100) 95 fL (79-100) Mean Corpuscular Hemoglobin 32 pg (25-35) 32 pg (25-35) Mean Corpuscular Hemoglobin Concent 34 g/dL (31-37) 34 g/dL (31-37) Red Cell Distribution Width 13.6 % (11.5-14.5) 13.6 % (11.5-14.5) Platelet Count 125 x10^3/uL (140-400) 115 x10^3/uL (140-400) Neutrophils (%) (Auto) 61 % (31-73) 44 % (31-73) Lymphocytes (%) (Auto) 24 % (24-48) 38 % (24-48) Monocytes (%) (Auto) 12 % (0-9) 14 % (0-9) Eosinophils (%) (Auto) 2 % (0-3) 4 % (0-3) Basophils (%) (Auto) 1 % (0-3) 1 % (0-3) Neutrophils # (Auto) 2.0 x10^3uL (1.8-7.7) 1.4 x10^3uL (1.8-7.7) Lymphocytes # (Auto) 0.8 x10^3/uL (1.0-4.8) 1.2 x10^3/uL (1.0-4.8) Monocytes # (Auto) 0.4 x10^3/uL (0.0-1.1) 0.4 x10^3/uL (0.0-1.1) Eosinophils # (Auto) 0.1 x10^3/uL (0.0-0.7) 0.1 x10^3/uL (0.0-0.7) Basophils # (Auto) 0.0 x10^3/uL (0.0-0.2) 0.0 x10^3/uL (0.0-0.2) Urine Collection Type Void Urine Color Yellow Urine Clarity Clear Urine pH 7.5 Urine Specific [place] 1.020 Urine Protein 30 mg/dL (NEG-TRACE) Urine Glucose (UA) Negative mg/dL (NEG) Urine Ketones (Stick) Trace mg/dL (NEG) Urine Blood Negative (NEG) Urine Nitrite Negative (NEG) Urine Bilirubin Negative (NEG) Urine Urobilinogen Dipstick 1.0 mg/dL (0.2 mg/dL) Urine Leukocyte Esterase Trace (NEG) Urine RBC 1-2 /HPF (0-2) Urine WBC 5-10 /HPF (0-4) Urine Squamous Epithelial Cells Occ /LPF Urine Bacteria Few /HPF (0-FEW) Urine Mucus Mod /LPF Sodium Level 138 mmol/L (136-145) 136 mmol/L (136-145) Potassium Level 4.0 mmol/L (3.5-5.1) 3.6 mmol/L (3.5-5.1) Chloride Level 98 mmol/L (98-107) 97 mmol/L (98-107) Carbon Dioxide Level 27 mmol/L (21-32) 27 mmol/L (21-32) Anion Gap 13 (6-14) 12 (6-14) Blood Urea Nitrogen 9 mg/dL (8-26) 8 mg/dL (8-26) Creatinine 1.0 mg/dL (0.7-1.3) 0.8 mg/dL (0.7-1.3) Estimated GFR (Cockcroft-Gault) 94.9 122.8 Glucose Level 98 mg/dL (70-99) 86 mg/dL (70-99) Calcium Level 9.7 mg/dL (8.5-10.1) 9.2 mg/dL (8.5-10.1) Magnesium Level 2.1 mg/dL (1.8-2.4) Total Bilirubin 0.6 mg/dL (0.2-1.0) Direct Bilirubin 0.2 mg/dL (0.0-0.2) Aspartate Amino Transf (AST/SGOT) 484 U/L (15-37) Alanine Aminotransferase (ALT/SGPT) 425 U/L (16-63) Alkaline Phosphatase 62 U/L (46-116) Troponin I Quantitative 0.017 ng/mL (0.000-0.055) 0.023 ng/mL (0.000-0.055) 0.021 ng/mL (0.000-0.055) ZA-Kmn-W-Type Natriuretic Peptide 22 pg/mL (0-124) Total Protein 8.0 g/dL (6.4-8.2) Albumin 4.3 g/dL (3.4-5.0) Lipase 232 U/L (73-393) Urine Opiates Screen Neg (NEG) Urine Methadone Screen Neg (NEG) Urine Barbiturates Neg (NEG) Urine Phencyclidine Screen Neg (NEG) Urine Amphetamine/Methamphetamine Neg (NEG) Urine Benzodiazepines Screen Neg (NEG) Urine Cocaine Screen Neg (NEG) Urine Cannabinoids Screen Neg (NEG) Urine Ethyl Alcohol Pos (NEG) Ethyl Alcohol Level 75 mg/dL (0-10) Triglycerides Level 45 mg/dL (0-150) Cholesterol Level 223 mg/dL (0-200) LDL Cholesterol, Calculated 75 mg/dL (0-100) VLDL Cholesterol, Calculated 9 mg/dL (0-40) Non-HDL Cholesterol Calculated 84 mg/dL (0-129) HDL Cholesterol 139 mg/dL (40-60) Cholesterol/HDL Ratio 1.6 Review of Systems Review of Systems asleep did not awaken Assessment and Plan Assessmemt and Plan Problems Medical Problems: (1) Alcohol addiction Status: Acute (2) HTN (hypertension) Status: Acute (3) Noncompliance with medication regimen Status: Acute (4) Palpitations Status: Acute Problems: Comment Review of Relevant I have reviewed the following items frances (where applicable) has been applied. Labs Laboratory Tests Test 04/22/17 16:56 04/22/17 17:22 04/22/17 23:45 04/23/17 04:30 White Blood Count 3.2 x10^3/uL (4.0-11.0) 3.1 x10^3/uL (4.0-11.0) Red Blood Count 4.65 x10^6/uL (4.30-5.70) 4.66 x10^6/uL (4.30-5.70) Hemoglobin 15.0 g/dL (13.0-17.5) 14.9 g/dL (13.0-17.5) Hematocrit 43.8 % (39.0-53.0) 44.1 % (39.0-53.0) Mean Corpuscular Volume 94 fL (79-100) 95 fL (79-100) Mean Corpuscular Hemoglobin 32 pg (25-35) 32 pg (25-35) Mean Corpuscular Hemoglobin Concent 34 g/dL (31-37) 34 g/dL (31-37) Red Cell Distribution Width 13.6 % (11.5-14.5) 13.6 % (11.5-14.5) Platelet Count 125 x10^3/uL (140-400) 115 x10^3/uL (140-400) Neutrophils (%) (Auto) 61 % (31-73) 44 % (31-73) Lymphocytes (%) (Auto) 24 % (24-48) 38 % (24-48) Monocytes (%) (Auto) 12 % (0-9) 14 % (0-9) Eosinophils (%) (Auto) 2 % (0-3) 4 % (0-3) Basophils (%) (Auto) 1 % (0-3) 1 % (0-3) Neutrophils # (Auto) 2.0 x10^3uL (1.8-7.7) 1.4 x10^3uL (1.8-7.7) Lymphocytes # (Auto) 0.8 x10^3/uL (1.0-4.8) 1.2 x10^3/uL (1.0-4.8) Monocytes # (Auto) 0.4 x10^3/uL (0.0-1.1) 0.4 x10^3/uL (0.0-1.1) Eosinophils # (Auto) 0.1 x10^3/uL (0.0-0.7) 0.1 x10^3/uL (0.0-0.7) Basophils # (Auto) 0.0 x10^3/uL (0.0-0.2) 0.0 x10^3/uL (0.0-0.2) Urine Collection Type Void Urine Color Yellow Urine Clarity Clear Urine pH 7.5 Urine Specific [place] 1.020 Urine Protein 30 mg/dL (NEG-TRACE) Urine Glucose (UA) Negative mg/dL (NEG) Urine Ketones (Stick) Trace mg/dL (NEG) Urine Blood Negative (NEG) Urine Nitrite Negative (NEG) Urine Bilirubin Negative (NEG) Urine Urobilinogen Dipstick 1.0 mg/dL (0.2 mg/dL) Urine Leukocyte Esterase Trace (NEG) Urine RBC 1-2 /HPF (0-2) Urine WBC 5-10 /HPF (0-4) Urine Squamous Epithelial Cells Occ /LPF Urine Bacteria Few /HPF (0-FEW) Urine Mucus Mod /LPF Sodium Level 138 mmol/L (136-145) 136 mmol/L (136-145) Potassium Level 4.0 mmol/L (3.5-5.1) 3.6 mmol/L (3.5-5.1) Chloride Level 98 mmol/L (98-107) 97 mmol/L (98-107) Carbon Dioxide Level 27 mmol/L (21-32) 27 mmol/L (21-32) Anion Gap 13 (6-14) 12 (6-14) Blood Urea Nitrogen 9 mg/dL (8-26) 8 mg/dL (8-26) Creatinine 1.0 mg/dL (0.7-1.3) 0.8 mg/dL (0.7-1.3) Estimated GFR (Cockcroft-Gault) 94.9 122.8 Glucose Level 98 mg/dL (70-99) 86 mg/dL (70-99) Calcium Level 9.7 mg/dL (8.5-10.1) 9.2 mg/dL (8.5-10.1) Magnesium Level 2.1 mg/dL (1.8-2.4) Total Bilirubin 0.6 mg/dL (0.2-1.0) Direct Bilirubin 0.2 mg/dL (0.0-0.2) Aspartate Amino Transf (AST/SGOT) 484 U/L (15-37) Alanine Aminotransferase (ALT/SGPT) 425 U/L (16-63) Alkaline Phosphatase 62 U/L (46-116) Troponin I Quantitative 0.017 ng/mL (0.000-0.055) 0.023 ng/mL (0.000-0.055) 0.021 ng/mL (0.000-0.055) GH-Llb-A-Type Natriuretic Peptide 22 pg/mL (0-124) Total Protein 8.0 g/dL (6.4-8.2) Albumin 4.3 g/dL (3.4-5.0) Lipase 232 U/L (73-393) Urine Opiates Screen Neg (NEG) Urine Methadone Screen Neg (NEG) Urine Barbiturates Neg (NEG) Urine Phencyclidine Screen Neg (NEG) Urine Amphetamine/Methamphetamine Neg (NEG) Urine Benzodiazepines Screen Neg (NEG) Urine Cocaine Screen Neg (NEG) Urine Cannabinoids Screen Neg (NEG) Urine Ethyl Alcohol Pos (NEG) Ethyl Alcohol Level 75 mg/dL (0-10) Triglycerides Level 45 mg/dL (0-150) Cholesterol Level 223 mg/dL (0-200) LDL Cholesterol, Calculated 75 mg/dL (0-100) VLDL Cholesterol, Calculated 9 mg/dL (0-40) Non-HDL Cholesterol Calculated 84 mg/dL (0-129) HDL Cholesterol 139 mg/dL (40-60) Cholesterol/HDL Ratio 1.6 Laboratory Tests Test 04/22/17 16:56 04/22/17 17:22 04/22/17 23:45 04/23/17 04:30 White Blood Count 3.2 x10^3/uL (4.0-11.0) 3.1 x10^3/uL (4.0-11.0) Red Blood Count 4.65 x10^6/uL (4.30-5.70) 4.66 x10^6/uL (4.30-5.70) Hemoglobin 15.0 g/dL (13.0-17.5) 14.9 g/dL (13.0-17.5) Hematocrit 43.8 % (39.0-53.0) 44.1 % (39.0-53.0) Mean Corpuscular Volume 94 fL (79-100) 95 fL (79-100) Mean Corpuscular Hemoglobin 32 pg (25-35) 32 pg (25-35) Mean Corpuscular Hemoglobin Concent 34 g/dL (31-37) 34 g/dL (31-37) Red Cell Distribution Width 13.6 % (11.5-14.5) 13.6 % (11.5-14.5) Platelet Count 125 x10^3/uL (140-400) 115 x10^3/uL (140-400) Neutrophils (%) (Auto) 61 % (31-73) 44 % (31-73) Lymphocytes (%) (Auto) 24 % (24-48) 38 % (24-48) Monocytes (%) (Auto) 12 % (0-9) 14 % (0-9) Eosinophils (%) (Auto) 2 % (0-3) 4 % (0-3) Basophils (%) (Auto) 1 % (0-3) 1 % (0-3) Neutrophils # (Auto) 2.0 x10^3uL (1.8-7.7) 1.4 x10^3uL (1.8-7.7) Lymphocytes # (Auto) 0.8 x10^3/uL (1.0-4.8) 1.2 x10^3/uL (1.0-4.8) Monocytes # (Auto) 0.4 x10^3/uL (0.0-1.1) 0.4 x10^3/uL (0.0-1.1) Eosinophils # (Auto) 0.1 x10^3/uL (0.0-0.7) 0.1 x10^3/uL (0.0-0.7) Basophils # (Auto) 0.0 x10^3/uL (0.0-0.2) 0.0 x10^3/uL (0.0-0.2) Urine Collection Type Void Urine Color Yellow Urine Clarity Clear Urine pH 7.5 Urine Specific [place] 1.020 Urine Protein 30 mg/dL (NEG-TRACE) Urine Glucose (UA) Negative mg/dL (NEG) Urine Ketones (Stick) Trace mg/dL (NEG) Urine Blood Negative (NEG) Urine Nitrite Negative (NEG) Urine Bilirubin Negative (NEG) Urine Urobilinogen Dipstick 1.0 mg/dL (0.2 mg/dL) Urine Leukocyte Esterase Trace (NEG) Urine RBC 1-2 /HPF (0-2) Urine WBC 5-10 /HPF (0-4) Urine Squamous Epithelial Cells Occ /LPF Urine Bacteria Few /HPF (0-FEW) Urine Mucus Mod /LPF Sodium Level 138 mmol/L (136-145) 136 mmol/L (136-145) Potassium Level 4.0 mmol/L (3.5-5.1) 3.6 mmol/L (3.5-5.1) Chloride Level 98 mmol/L (98-107) 97 mmol/L (98-107) Carbon Dioxide Level 27 mmol/L (21-32) 27 mmol/L (21-32) Anion Gap 13 (6-14) 12 (6-14) Blood Urea Nitrogen 9 mg/dL (8-26) 8 mg/dL (8-26) Creatinine 1.0 mg/dL (0.7-1.3) 0.8 mg/dL (0.7-1.3) Estimated GFR (Cockcroft-Gault) 94.9 122.8 Glucose Level 98 mg/dL (70-99) 86 mg/dL (70-99) Calcium Level 9.7 mg/dL (8.5-10.1) 9.2 mg/dL (8.5-10.1) Magnesium Level 2.1 mg/dL (1.8-2.4) Total Bilirubin 0.6 mg/dL (0.2-1.0) Direct Bilirubin 0.2 mg/dL (0.0-0.2) Aspartate Amino Transf (AST/SGOT) 484 U/L (15-37) Alanine Aminotransferase (ALT/SGPT) 425 U/L (16-63) Alkaline Phosphatase 62 U/L (46-116) Troponin I Quantitative 0.017 ng/mL (0.000-0.055) 0.023 ng/mL (0.000-0.055) 0.021 ng/mL (0.000-0.055) OI-Rql-A-Type Natriuretic Peptide 22 pg/mL (0-124) Total Protein 8.0 g/dL (6.4-8.2) Albumin 4.3 g/dL (3.4-5.0) Lipase 232 U/L (73-393) Urine Opiates Screen Neg (NEG) Urine Methadone Screen Neg (NEG) Urine Barbiturates Neg (NEG) Urine Phencyclidine Screen Neg (NEG) Urine Amphetamine/Methamphetamine Neg (NEG) Urine Benzodiazepines Screen Neg (NEG) Urine Cocaine Screen Neg (NEG) Urine Cannabinoids Screen Neg (NEG) Urine Ethyl Alcohol Pos (NEG) Ethyl Alcohol Level 75 mg/dL (0-10) Triglycerides Level 45 mg/dL (0-150) Cholesterol Level 223 mg/dL (0-200) LDL Cholesterol, Calculated 75 mg/dL (0-100) VLDL Cholesterol, Calculated 9 mg/dL (0-40) Non-HDL Cholesterol Calculated 84 mg/dL (0-129) HDL Cholesterol 139 mg/dL (40-60) Cholesterol/HDL Ratio 1.6 Medications Current Medications Acetaminophen (Tylenol) 1,000 mg 1X ONCE PO Last administered on 04/22/17 17: 04; Start 04/22/17 at 16:30; Stop 04/22/17 at 16:33; Status DC Labetalol HCl (Normodyne) 20 mg 1X ONCE IVP Last administered on 04/22/17 18: 12; Start 04/22/17 at 17:45; Stop 04/22/17 at 17:46; Status DC Amlodipine Besylate (Norvasc) 10 mg 1X ONCE PO Last administered on 04/22/17 18:13; Start 04/22/17 at 18:00; Stop 04/22/17 at 18:01; Status DC Labetalol HCl (Normodyne) 40 mg 1X ONCE IVP Last administered on 04/22/17 19: 26; Start 04/22/17 at 19:15; Stop 04/22/17 at 19:16; Status DC Nicardipine HCl 50 mg/Sodium Chloride 270 ml @ 0 mls/hr CONT PRN IV SEE I/O RECORD Last administered on 04/23/17 03:32; Start 04/22/17 at 20:00 Multivitamins 10 ml/Thiamine HCl 100 mg/Folic Acid 1 mg/Sodium Chloride 1,011.2 ml @ 100 mls/ hr DAILY IV Last administered on 04/23/17 09:08; Start at 21:00; Stop 04/28/17 at 20:59 Chlordiazepoxide (Librium) 50 mg PRN Q1HR PRN PO For CIWA 8-14 Last administered on 04/23/17 03:35; Start 04/22/17 at 20:45 Diazepam (Valium) 5 mg PRN Q5MIN PRN IV COMM Last administered on 04/22/17 22: 11; Start 04/22/17 at 20:45 Nicotine (Nicoderm Cq 21mg) 1 patch PRN DAILY PRN TD SMOKING CESSATION; Start 04/22/17 at 21:00 Ondansetron HCl (Zofran) 4 mg PRN Q8HRS PRN IV NAUSEA/VOMITING; Start 04/22/17 at 21:15; Stop 04/23/17 at 21:14 Amlodipine Besylate (Norvasc) 10 mg DAILY PO ; Start 04/23/17 at 10:00 Carvedilol (Coreg) 6.25 mg BIDWMEALS PO Last administered on 04/23/17 09:38; Start 04/23/17 at 10:00 Active Scripts Active Reported No Known Medications Prior To Admisstion (Info) Each 1 Each Vitals/I & O Vital Sign - Last 24 Hours 04/22/17 04/22/17 04/22/1722/17 16:00 16:05 16:30 17:00 Temp 98.3 98.3 Pulse 74 74 78 Resp 13 19 B/P (MAP) 204/115 (144) 204/115 (144) 191/108 (135) 195/135 (155) Pulse Ox 98 98 97 O2 Delivery Room Air Room Air 04/22/17 04/22/17 04/22/17 04/22/17 17:30 18:00 18:12 18:13 Pulse 74 76 76 74 Resp 12 14 B/P (MAP) 209/105 (139) 175/107 (129) 175/107 209/105 Pulse Ox 95 97 O2 Delivery Room Air 04/22/17 04/22/17 04/22/17 04/22/17 18:30 19:00 19:26 19:30 Pulse 72 70 77 76 Resp 13 11 20 B/P (MAP) 186/114 (138) 199/115 (143) 191/113 191/113 (139) Pulse Ox 97 97 97 O2 Delivery Room Air Room Air Room Air 04/22/17 04/22/17 04/22/17 04/22/17 20:00 20:30 21:00 21:30 Pulse 78 90 90 94 Resp 26 12 12 14 B/P (MAP) 183/110 (134) 196/112 (140) 163/96 (118) 154/86 (108) Pulse Ox 95 95 95 95 O2 Delivery Room Air 04/22/17 04/22/17 04/22/17 04/22/17 22:00 22:30 22:56 22:56 Temp 98.3 98.3 98.3 98.3 Pulse 100 99 100 100 Resp 31 16 16 B/P (MAP) 136/73 (94) 130/73 (92) 134/73 (93) 134/73 (93) Pulse Ox 94 93 93 O2 Delivery Room Air Room Air 04/22/17 04/23/17 04/23/17 04/23/17 23:00 00:01 01:00 02:23 Temp 98.3 98.3 Pulse 96 118 85 Resp 16 B/P (MAP) 126/71 (89) 128/69 (88) 127/78 (94) Pulse Ox 92 O2 Delivery Room Air Room Air 04/23/17 04/23/17 04/23/1717 03:00 04:00 05:00 06:00 Pulse 94 88 96 94 B/P (MAP) 136/84 (101) 129/76 (93) 129/71 (90) 133/74 (93) 04/23/17 04/23/17 04/23/17 08:25 09:38 10:16 Temp 97.9 97.9 Pulse 110 101 Resp 19 B/P (MAP) 130/74 130/76 (94) Pulse Ox 95 O2 Delivery Room Air Room Air Intake and Output 04/22/17 04/22/17 04/23/17 14:59 22:59 06:59 Intake Total 115 ml 150 ml Balance 115 ml 150 ml LESIA MEDLEY MD Apr 23, 2017 11:44
--- NOTE | 2017-04-23 11:46 | PDOC3 ---
Discharge Summary Visit Information Date of Admission: Apr 22, 2017 Date of Discharge: Apr 23, 2017 Admitting Diagnosis Comment: 1. Accelerated hTN POA 2. Alcohol heavy consumption now with etoh withdrawal sxs 3. Ruptured lipoma vs small dermoid, incidental on head CT 4. NEutropenia in an alcoholic 5. Smoker 6. elevated LFTs in an alcoholic 7. Thrombocytopenia in an alcoholic Final Diagnosis Problems Medical Problems: (1) Alcohol addiction Status: Acute (2) HTN (hypertension) Status: Acute (3) Noncompliance with medication regimen Status: Acute (4) Palpitations Status: Acute Brief Hospital Course Allergies Allergies Coded Allergies Type Severity Reaction Last Updated Verified lisinopril Allergy Severe angioedema 03/24/17 Yes Vital Signs Vital Signs Date Time Temp Pulse Resp B/P (MAP) Pulse Ox O2 Delivery O2 Flow Rate FiO2 04/23/17 10:16 97.9 101 19 130/76 (94) 95 Room Air 97.9 Lab Results Laboratory Tests Test 04/22/17 16:56 04/22/17 17:22 04/22/17 23:45 04/23/17 04:30 White Blood Count 3.2 x10^3/uL (4.0-11.0) 3.1 x10^3/uL (4.0-11.0) Red Blood Count 4.65 x10^6/uL (4.30-5.70) 4.66 x10^6/uL (4.30-5.70) Hemoglobin 15.0 g/dL (13.0-17.5) 14.9 g/dL (13.0-17.5) Hematocrit 43.8 % (39.0-53.0) 44.1 % (39.0-53.0) Mean Corpuscular Volume 94 fL (79-100) 95 fL (79-100) Mean Corpuscular Hemoglobin 32 pg (25-35) 32 pg (25-35) Mean Corpuscular Hemoglobin Concent 34 g/dL (31-37) 34 g/dL (31-37) Red Cell Distribution Width 13.6 % (11.5-14.5) 13.6 % (11.5-14.5) Platelet Count 125 x10^3/uL (140-400) 115 x10^3/uL (140-400) Neutrophils (%) (Auto) 61 % (31-73) 44 % (31-73) Lymphocytes (%) (Auto) 24 % (24-48) 38 % (24-48) Monocytes (%) (Auto) 12 % (0-9) 14 % (0-9) Eosinophils (%) (Auto) 2 % (0-3) 4 % (0-3) Basophils (%) (Auto) 1 % (0-3) 1 % (0-3) Neutrophils # (Auto) 2.0 x10^3uL (1.8-7.7) 1.4 x10^3uL (1.8-7.7) Lymphocytes # (Auto) 0.8 x10^3/uL (1.0-4.8) 1.2 x10^3/uL (1.0-4.8) Monocytes # (Auto) 0.4 x10^3/uL (0.0-1.1) 0.4 x10^3/uL (0.0-1.1) Eosinophils # (Auto) 0.1 x10^3/uL (0.0-0.7) 0.1 x10^3/uL (0.0-0.7) Basophils # (Auto) 0.0 x10^3/uL (0.0-0.2) 0.0 x10^3/uL (0.0-0.2) Urine Collection Type Void Urine Color Yellow Urine Clarity Clear Urine pH 7.5 Urine Specific [place] 1.020 Urine Protein 30 mg/dL (NEG-TRACE) Urine Glucose (UA) Negative mg/dL (NEG) Urine Ketones (Stick) Trace mg/dL (NEG) Urine Blood Negative (NEG) Urine Nitrite Negative (NEG) Urine Bilirubin Negative (NEG) Urine Urobilinogen Dipstick 1.0 mg/dL (0.2 mg/dL) Urine Leukocyte Esterase Trace (NEG) Urine RBC 1-2 /HPF (0-2) Urine WBC 5-10 /HPF (0-4) Urine Squamous Epithelial Cells Occ /LPF Urine Bacteria Few /HPF (0-FEW) Urine Mucus Mod /LPF Sodium Level 138 mmol/L (136-145) 136 mmol/L (136-145) Potassium Level 4.0 mmol/L (3.5-5.1) 3.6 mmol/L (3.5-5.1) Chloride Level 98 mmol/L (98-107) 97 mmol/L (98-107) Carbon Dioxide Level 27 mmol/L (21-32) 27 mmol/L (21-32) Anion Gap 13 (6-14) 12 (6-14) Blood Urea Nitrogen 9 mg/dL (8-26) 8 mg/dL (8-26) Creatinine 1.0 mg/dL (0.7-1.3) 0.8 mg/dL (0.7-1.3) Estimated GFR (Cockcroft-Gault) 94.9 122.8 Glucose Level 98 mg/dL (70-99) 86 mg/dL (70-99) Calcium Level 9.7 mg/dL (8.5-10.1) 9.2 mg/dL (8.5-10.1) Magnesium Level 2.1 mg/dL (1.8-2.4) Total Bilirubin 0.6 mg/dL (0.2-1.0) Direct Bilirubin 0.2 mg/dL (0.0-0.2) Aspartate Amino Transf (AST/SGOT) 484 U/L (15-37) Alanine Aminotransferase (ALT/SGPT) 425 U/L (16-63) Alkaline Phosphatase 62 U/L (46-116) Troponin I Quantitative 0.017 ng/mL (0.000-0.055) 0.023 ng/mL (0.000-0.055) 0.021 ng/mL (0.000-0.055) YJ-Wmj-U-Type Natriuretic Peptide 22 pg/mL (0-124) Total Protein 8.0 g/dL (6.4-8.2) Albumin 4.3 g/dL (3.4-5.0) Lipase 232 U/L (73-393) Urine Opiates Screen Neg (NEG) Urine Methadone Screen Neg (NEG) Urine Barbiturates Neg (NEG) Urine Phencyclidine Screen Neg (NEG) Urine Amphetamine/Methamphetamine Neg (NEG) Urine Benzodiazepines Screen Neg (NEG) Urine Cocaine Screen Neg (NEG) Urine Cannabinoids Screen Neg (NEG) Urine Ethyl Alcohol Pos (NEG) Ethyl Alcohol Level 75 mg/dL (0-10) Triglycerides Level 45 mg/dL (0-150) Cholesterol Level 223 mg/dL (0-200) LDL Cholesterol, Calculated 75 mg/dL (0-100) VLDL Cholesterol, Calculated 9 mg/dL (0-40) Non-HDL Cholesterol Calculated 84 mg/dL (0-129) HDL Cholesterol 139 mg/dL (40-60) Cholesterol/HDL Ratio 1.6 Thyroid Stimulating Hormone (TSH) 2.915 uIU/mL (0.358-3.74) Laboratory Tests Test 04/22/17 16:56 04/22/17 17:22 04/22/17 23:45 04/23/17 04:30 White Blood Count 3.2 x10^3/uL (4.0-11.0) 3.1 x10^3/uL (4.0-11.0) Red Blood Count 4.65 x10^6/uL (4.30-5.70) 4.66 x10^6/uL (4.30-5.70) Hemoglobin 15.0 g/dL (13.0-17.5) 14.9 g/dL (13.0-17.5) Hematocrit 43.8 % (39.0-53.0) 44.1 % (39.0-53.0) Mean Corpuscular Volume 94 fL (79-100) 95 fL (79-100) Mean Corpuscular Hemoglobin 32 pg (25-35) 32 pg (25-35) Mean Corpuscular Hemoglobin Concent 34 g/dL (31-37) 34 g/dL (31-37) Red Cell Distribution Width 13.6 % (11.5-14.5) 13.6 % (11.5-14.5) Platelet Count 125 x10^3/uL (140-400) 115 x10^3/uL (140-400) Neutrophils (%) (Auto) 61 % (31-73) 44 % (31-73) Lymphocytes (%) (Auto) 24 % (24-48) 38 % (24-48) Monocytes (%) (Auto) 12 % (0-9) 14 % (0-9) Eosinophils (%) (Auto) 2 % (0-3) 4 % (0-3) Basophils (%) (Auto) 1 % (0-3) 1 % (0-3) Neutrophils # (Auto) 2.0 x10^3uL (1.8-7.7) 1.4 x10^3uL (1.8-7.7) Lymphocytes # (Auto) 0.8 x10^3/uL (1.0-4.8) 1.2 x10^3/uL (1.0-4.8) Monocytes # (Auto) 0.4 x10^3/uL (0.0-1.1) 0.4 x10^3/uL (0.0-1.1) Eosinophils # (Auto) 0.1 x10^3/uL (0.0-0.7) 0.1 x10^3/uL (0.0-0.7) Basophils # (Auto) 0.0 x10^3/uL (0.0-0.2) 0.0 x10^3/uL (0.0-0.2) Urine Collection Type Void Urine Color Yellow Urine Clarity Clear Urine pH 7.5 Urine Specific [place] 1.020 Urine Protein 30 mg/dL (NEG-TRACE) Urine Glucose (UA) Negative mg/dL (NEG) Urine Ketones (Stick) Trace mg/dL (NEG) Urine Blood Negative (NEG) Urine Nitrite Negative (NEG) Urine Bilirubin Negative (NEG) Urine Urobilinogen Dipstick 1.0 mg/dL (0.2 mg/dL) Urine Leukocyte Esterase Trace (NEG) Urine RBC 1-2 /HPF (0-2) Urine WBC 5-10 /HPF (0-4) Urine Squamous Epithelial Cells Occ /LPF Urine Bacteria Few /HPF (0-FEW) Urine Mucus Mod /LPF Sodium Level 138 mmol/L (136-145) 136 mmol/L (136-145) Potassium Level 4.0 mmol/L (3.5-5.1) 3.6 mmol/L (3.5-5.1) Chloride Level 98 mmol/L (98-107) 97 mmol/L (98-107) Carbon Dioxide Level 27 mmol/L (21-32) 27 mmol/L (21-32) Anion Gap 13 (6-14) 12 (6-14) Blood Urea Nitrogen 9 mg/dL (8-26) 8 mg/dL (8-26) Creatinine 1.0 mg/dL (0.7-1.3) 0.8 mg/dL (0.7-1.3) Estimated GFR (Cockcroft-Gault) 94.9 122.8 Glucose Level 98 mg/dL (70-99) 86 mg/dL (70-99) Calcium Level 9.7 mg/dL (8.5-10.1) 9.2 mg/dL (8.5-10.1) Magnesium Level 2.1 mg/dL (1.8-2.4) Total Bilirubin 0.6 mg/dL (0.2-1.0) Direct Bilirubin 0.2 mg/dL (0.0-0.2) Aspartate Amino Transf (AST/SGOT) 484 U/L (15-37) Alanine Aminotransferase (ALT/SGPT) 425 U/L (16-63) Alkaline Phosphatase 62 U/L (46-116) Troponin I Quantitative 0.017 ng/mL (0.000-0.055) 0.023 ng/mL (0.000-0.055) 0.021 ng/mL (0.000-0.055) CB-Qgn-T-Type Natriuretic Peptide 22 pg/mL (0-124) Total Protein 8.0 g/dL (6.4-8.2) Albumin 4.3 g/dL (3.4-5.0) Lipase 232 U/L (73-393) Urine Opiates Screen Neg (NEG) Urine Methadone Screen Neg (NEG) Urine Barbiturates Neg (NEG) Urine Phencyclidine Screen Neg (NEG) Urine Amphetamine/Methamphetamine Neg (NEG) Urine Benzodiazepines Screen Neg (NEG) Urine Cocaine Screen Neg (NEG) Urine Cannabinoids Screen Neg (NEG) Urine Ethyl Alcohol Pos (NEG) Ethyl Alcohol Level 75 mg/dL (0-10) Triglycerides Level 45 mg/dL (0-150) Cholesterol Level 223 mg/dL (0-200) LDL Cholesterol, Calculated 75 mg/dL (0-100) VLDL Cholesterol, Calculated 9 mg/dL (0-40) Non-HDL Cholesterol Calculated 84 mg/dL (0-129) HDL Cholesterol 139 mg/dL (40-60) Cholesterol/HDL Ratio 1.6 Thyroid Stimulating Hormone (TSH) 2.915 uIU/mL (0.358-3.74) Brief Hospital Course Mr. Chandler is a 51 old [sex] who presented with [ ]51 y.o AA male, heavy alcoholic, many beers a day, pint of gin everyday, ETOH levels 75, high BP on admit, no resolved with hydralazine pushes and PO anti hypertensives, admitted for high BP on cardene gtt and etoh withdrawal. Smokes too, tested positive for etoh, labs WBC 3,.2, platelets ok, no mag, K is ok, Pt starting to shake, CXR normal, CT head I have personally reviewed: IMPRESSION: 1. No acute intracranial finding. Note is made that MRI is more sensitive for acute infarction. 2. Small focal areas of fat density along the falx and atrium of the left lateral ventricle. The differential includes small lipomas as well as dermoid or ruptured dermoid. 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 Tells us was on lisinopril before but had angioedema hence stopped, And was not replaced on anything (pt might not be that reliable) COURSE: CIWA started, Cardene gtt stopped, started on bB PO, BP better. PT assessed, gait steady (no PT needs) Once echo done and ok, will dc on PO anti hypertensives and Librium prn Discharge Information Condition at Discharge: Improved, Stable Disposition/Orders: D/C to Home Miscellaneous Medications Info (No Known Medications Prior To Admisstion), 1 EACH , (Reported) LESIA MEDLEY MD Apr 23, 2017 11:46
[2017-04-23] MEDS ORDERED: CARV6.25 PO (11:49)
--- NOTE | 2017-04-23 12:42 | CARD ---
APPROVED REPORT EXAM: Two-dimensional and M-mode echocardiogram with Doppler and color Doppler. Other Information Quality : Average Rhythm : Tachycardia INDICATION Hypertension/HCVD 2D DIMENSIONS RVDd3.3 (2.9-3.5cm)Left Atrium(2D)2.8 (1.6-4.0cm) IVSd1.3 (0.7-1.1cm)Aortic Root(2D)3.2 (2.0-3.7cm) LVDd4.0 (3.9-5.9cm)LVOT Diameter2.3 (1.8-2.4cm) PWd1.3 (0.7-1.1cm)LVDs2.4 (2.5-4.0cm) FS (%) 29.2 %SV49.1 ml LVEF(%)60.2 (>50%) Aortic Valve AoV Peak Jaciel.98.8cm/sAoV VTI13.2cm AO Peak GR.3.9mmHgLVOT Peak Jaciel.84.9cm/s LVOT VTI 13.44cmAO Mean GR.2mmHg GIULIANO (VMAX)3.28zg0ZJM (VTI)4.08cm2 Mitral Valve MV E Gqqngazj13.3cm/sMV DECEL [id number] MV A Ghzdohke85.4cm/sMV E Mean Gr.2mmHg MV BMS87uhF/A Ratio0.6 MV A Kxqauhks728loOLN (PHT)5.02cm2 TDI E/Lateral E'6.1E/Medial E'5.9 Pulmonary Valve PV Peak Pfuxgrqy94.5cm/sPV Peak Grad.4mmHg RVOT VTI10.1cm Tricuspid Valve TR P. Yqggvcrg306ld/sRAP [id number] TR Peak Gr.19gpWtMKHD79grAn Pulmonary Vein S1 Tzfuuhrf85.1cm/sD2 Omsqbkmv91.0cm/s LEFT VENTRICLE The left ventricle is normal size. There is borderline to mild concentric left ventricular hypertroph y. Left ventricle systolic function is normal. The Ejection Fraction is 55-60%. There is normal LV se gmental wall motion. Tissue Doppler imaging reveals mild left ventricular diastolic dysfunction. Schmid smitral Doppler flow pattern is Grade I-abnormal relaxation pattern. There is no ventricular septal d efect visualized. RIGHT VENTRICLE The right ventricle is normal size. The right ventricular systolic function is normal. ATRIA The left atrium size is normal. The right atrium size is normal. The interatrial septum is intact wit h no evidence for an atrial septal defect or patent foramen ovale as noted on 2-D or Doppler imaging. AORTIC VALVE The aortic valve is normal in structure and function. The aortic valve is trileaflet. Doppler and Col or Flow revealed no significant aortic regurgitation. There is no significant aortic valvular stenosi s. MITRAL VALVE The mitral valve is normal in structure and function. There is no evidence of mitral valve prolapse. There is no mitral valve stenosis. Doppler and Color Flow revealed no mitral valve regurgitation note d. TRICUSPID VALVE The tricuspid valve is normal in structure and function. Doppler and Color Flow revealed trace tricus pid regurgitation. The PA pressure was estimated at 34 mmHg. There is no tricuspid valve stenosis. PULMONIC VALVE The pulmonic valve is not well visualized. Doppler and Color Flow revealed no pulmonic valvular regur gitation. There is no pulmonic valvular stenosis. GREAT VESSELS The aortic root is normal in size. Pulmonary venous flow (Doppler) suggestive of mild diastolic dysfu nction. The IVC is normal in size and collapses >50% with inspiration. PERICARDIAL EFFUSION There is no evidence of significant pericardial effusion. Critical Notification Critical Value: No <Conclusion> The left ventricle is normal size. Left ventricle systolic function is normal. The Ejection Fraction is 55-60%. There is borderline to mild concentric left ventricular hypertrophy. There is no significant aortic valvular stenosis. Doppler and Color Flow revealed no significant aortic regurgitation. Doppler and Color Flow revealed no mitral valve regurgitation noted. Doppler and Color Flow revealed trace tricuspid regurgitation. The PA pressure was estimated at 34 mmHg. There is no evidence of significant pericardial effusion.
== END 2017-04-23 15:30 | disposition home or self-care (01) | DRG 897 ==
LOC: ER 15:56 → 2 SOUTH 19:49
PROVIDERS: ADMIT Internal Medicine; ATTEND Internal Medicine
DX: F10.239 Alcohol dependence with withdrawal, unspecified (principal); I10 Essential (primary) hypertension; F17.200 Nicotine dependence, unspecified, uncomplicated; D70.9 Neutropenia, unspecified; D69.6 Thrombocytopenia, unspecified; G47.33 Obstructive sleep apnea (adult) (pediatric); F10.20 Alcohol dependence, uncomplicated; M10.9 Gout, unspecified; Z82.49 Family history of ischemic heart disease and other diseases of the circulatory system; Z91.14 Patient's other noncompliance with medication regimen; Z91.19 Patient's noncompliance with other medical treatment and regimen
CPT/HCPCS: 36415; 70450; 71020; 80048; 80061; 80076; 81001; 83690; 83735; 83880; 84443; 84484; 85027; 87086; 93005; 93306; 96374; 96375; 96376; G0480; G0481; J3360; J3490; J7030; J7050; 99285-25